=== PATIENT | female | born 1965 | race Caucasian/White ===

== ENCOUNTER 2023-07-04 15:21 | Outpatient (CLI) | payer OTHER, SELFPAY ==
--- NOTE | ~2023-07-04 | CT_ITS ---
EXAMINATION: CT abdomen pelvis wo con DATE: 07/04/2023 15:40 INDICATION: Right ureteral stone TECHNIQUE: Computed tomography (CT) of the abdomen and pelvis was performed without intravenous contr ast. Automated exposure control and iterative reconstruction technique were employed. Exam dose: 181 .00 mGy-cm total exam DLP. COMPARISON: 07/04/2023 KUB FINDINGS: The lung bases are clear of infiltrate or consolidation. Normal heart size. No pericardial or pleural effusion. Bilateral breast implants. The liver, gallbladder, bile ducts, spleen, pancreas, pancreatic duct, and adrenal glands are unremar kable. No renal mass lesion. Nonobstructing approximately 2.6 mm right renal calculus. There are approximately three up to 3 mm distal right ureteral contiguous calculi with mild right hyd roureteronephrosis. No left urinary tract calculus or hydronephrosis. The urinary bladder, uterus and adnexal areas are unremarkable. There is atherosclerotic calcification but normal caliber of the abdominal aorta. No intraperitoneal or retroperitoneal or pelvic mass lesion or adenopathy or ascites. There are numerous diverticula of the sigmoid colon; no CT evidence of diverticulitis. No bowel obstr uction, bowel wall thickening, pneumatosis or intraperitoneal free air is detected. Small fat-containing umbilical hernia. Prominent degenerative disc disease and associated mild retrolisthesis at L5-S1. IMPRESSION: Mild distal right ureteral Steinstrasse due to at least several up to 3 mm distal right ureteral calculi Approximately 2.6 mm right renal nonobstructing calculus Diverticulosis of the sigmoid colon Reviewed, dictated and finalized at [facility]. Reviewed, dictated and finalized at location [facility]. [facility]
--- NOTE | ~2023-07-04 | XR_ITS ---
EXAMINATION: XR abdomen/kub 1V DATE: 07/04/2023 15:43 INDICATION: Right ureteral stone. TECHNIQUE: A supine view of the abdomen on 2 radiographs was obtained. COMPARISON: CT abdomen and pelvis 07/04/2023 FINDINGS: There are no dilated loops of bowel. There is a moderate volume of stool in the colon. The kidneys are obscured by bowel. There are approximately 3 stones in distal right ureter measuring up t o 3 mm. IMPRESSION: 1. Small stones in distal right ureter. Reviewed, dictated and finalized at [facility]. [employer]
== END 2023-07-04 15:22 | disposition home or self-care (01) ==
LOC: ANHIMG 15:26
PROVIDERS: PCP Urology; Visit Provider Urology
DX: K57.30 Diverticulosis of large intestine without perforation or abscess without bleeding (principal); N20.2 Calculus of kidney with calculus of ureter
CPT/HCPCS: 74018; 74176